=== PATIENT | male | born 1985 | race African-American/Black ===

== ENCOUNTER 2018-02-24 12:02 | Observation (INO) | payer SELFPAY ==
[2018-02-24] MEDS ORDERED: NS 1,000 ML IV ONE (13:00)
[2018-02-24] MEDS ORDERED: ONDANSETRON 4 MG/2 ML VIAL IVP ONE (13:00)
--- NOTE | 2018-02-24 13:15 | EDPHY ---
H & P Stated Complaint: Mid abd pain, vomiting x 1 day, constipation Time Seen by Provider: 02/24/18 12:47 HPI/ROS: CHIEF COMPLAINT: Abdominal pain HISTORY OF PRESENT ILLNESS: 32-year-old generally healthy male arrives via private vehicle with his complaining of epigastric and periumbilical pain which started last evening after eating some cheese. Positive nausea with no vomiting. Feels like he needs to pass gas and stool and is unable to do so Last oral intake 10:00 a.m. today consisting of cereal PRIMARY CARE PROVIDER: REVIEW OF SYSTEMS: 10 systems reviewed and negative with the exception of the elements mentioned in the history of present illness PAST MEDICAL & SURGICAL HISTORY: No history of abdominal surgeries SOCIAL HISTORY:Intermittent marijuana smoking PHYSICAL EXAM (Prior to examination, patient consented to physical exam, hands were washed and my usual and customary physical exam procedures followed) 1) GENERAL: Well-developed, well-nourished, alert and oriented. Appears uncomfortable, observed ambulating with antalgic gait, bent over guarding his abdomen. 2) HEAD: Normocephalic, atraumatic 3) HEENT: Pupils equal, round, reactive to light bilaterally. Sclera anicteric. Nasopharynx, oropharynx, clear, no lesions. Moist Mucous membranes. 4) NECK: Full range of motion, no meningeal signs. 5) LUNGS: Clear auscultation bilaterally, no wheezes, no rhonchi, no retractions. 6) HEART: Regular rate and rhythm, no murmur, no heave, no gallop. 7) ABDOMEN: guarding abdomen, tender to palpation epigastrium, no palpable or pulsatile mass, negative McBurney's, negative Chou's, negative Rovsing's, negative peritoneal sign, 8) MUSCULOSKELETAL: Moving all extremities, no focal areas of tenderness, no obvious trauma. No peripheral edema or discoloration. 9) BACK: No CVA tenderness, no midline vertebral tenderness, no fluctuance, no step-off, no obvious trauma, no visual or palpable abnormality. 10) SKIN: No rash, no petechiae. 11) Psychiatric: Patient is oriented X 3, there is no agitation. DIFFERENTIAL DIAGNOSIS: My differential diagnosis includes, but is not limited to, acute appendicitis, acute cholecystitis, bowel obstruction, acute pancreatitis, testicular torsion, gastritis and urinary tract infection. The patient understands that this diagnosis is provisional and can never be 100% accurate. This is a partial list of diagnoses considered. These considerations are based on history, physical exam, past history and reassessment. - Medical/Surgical History Hx Asthma: No Hx Chronic Respiratory Disease: No Hx Diabetes: No Hx Cardiac Disease: No Hx Renal Disease: No Hx Cirrhosis: No Hx Alcoholism: No Hx HIV/AIDS: No Hx Splenectomy or Spleen Trauma: No Other PMH: denies - Social History Smoking Status: Never smoked Constitutional: Initial Vital Signs Heart Rate 85 02/24/18 12:09 Respiratory Rate 16 02/24/18 12:09 Blood Pressure 128/85 H 02/24/18 12:09 O2 Sat (%) 97 02/24/18 12:09 O2 Delivery Mode Room Air Allergies/Adverse Reactions: No Known Allergies Allergy (Verified 02/24/18 15:13) Home Medications: Medication Instructions Recorded NK [No Known Home Meds] 02/24/18 Medical Decision Making - Diagnostics Imaging Results: Imaging Impressions Abdomen CT 02/24/18 13:01 Impression: 1. Small bowel distention suggesting ileus or obstruction, with no definite transition point identified. 2. Indeterminate cystic structure in the left lower lobe, likely benign, however follow up CT is recommended in 3-6 months. 3. Apparent thickening of the distal stomach, which could be related to inflammation or underdistention. 4. Additional findings as above. Findings discussed with Jolynn Lundberg 02/24/2018 at 14:39. Images reviewed myself ED Course/Re-evaluation: Discussed case with secondary supervising physician Dr. Zeus Copeland in the ER. Patient noted to have bowel obstruction on CT imaging. Patient was re- examined he remains complaining of discomfort. Will plan on admission. 2:50 p.m.: Consultation with Dr. Benitez Elias regarding the patient's bowel obstruction. Dr. Elias will admit patient - Data Points Laboratory Results: Laboratory Results 02/24/18 12:54 02/24/18 12:54 02/24/18 02/24/18 02/24/18 13:09 12:54 12:54 WBC 6.02 10^3/uL 10^3/uL (3.80-9.50) RBC 5.01 10^6/uL 10^6/uL (4.40-6.38) Hgb 15.0 g/dL g/dL (13.7-17.5) POC Hgb 15.6 gm/dL gm/dL (13.7-17.5) Hct 45.7 % % (40.0-51.0) POC Hct 46 % % (40-51) MCV 91.2 fL fL (81.5-99.8) MCH 29.9 pg pg (27.9-34.1) MCHC 32.8 g/dL g/dL (32.4-36.7) RDW 13.6 % % (11.5-15.2) Plt Count 256 10^3/uL 10^3/uL (150-400) MPV 10.9 fL fL (8.7-11.7) Neut % (Auto) 62.9 % % (39.3-74.2) Lymph % (Auto) 25.7 % % (15.0-45.0) Addison % (Auto) 10.8 % % (4.5-13.0) Eos % (Auto) 0.2 % L % (0.6-7.6) Baso % (Auto) 0.2 % L % (0.3-1.7) Nucleat RBC Rel Count 0.0 % % (0.0-0.2) Absolute Neuts (auto) 3.79 10^3/uL 10^3/uL (1.70-6.50) Absolute Lymphs (auto) 1.55 10^3/uL 10^3/uL (1.00-3.00) Absolute Monos (auto) 0.65 10^3/uL 10^3/uL (0.30-0.80) Absolute Eos (auto) 0.01 10^3/uL L 10^3/uL (0.03-0.40) Absolute Basos (auto) 0.01 10^3/uL L 10^3/uL (0.02-0.10) Absolute Nucleated RBC 0.00 10^3/uL 10^3/uL (0-0.01) Immature Gran % 0.2 % % (0.0-1.1) Immature Gran # 0.01 10^3/uL 10^3/uL (0.00-0.10) POC Sodium 140 mEq/L mEq/L (135-145) Sodium 140 mEq/L mEq/L (135-145) POC Potassium 3.5 mEq/L mEq/L (3.3-5.0) Potassium 3.9 mEq/L mEq/L (3.5-5.2) POC Chloride 98 mEq/L mEq/L (97-110) Chloride 100 mEq/L mEq/L (97-110) Carbon Dioxide 25 mEq/l mEq/l (22-31) Anion Gap 15 mEq/L H mEq/L (6-14) POC BUN 3 mg/dL L mg/dL (7-23) BUN 6 mg/dL L mg/dL (7-23) Creatinine 0.7 mg/dL mg/dL (0.7-1.3) POC Creatinine 0.6 mg/dL L mg/dL (0.7-1.3) Estimated GFR > 60 Glucose 103 mg/dL H mg/dL (70-100) POC Glucose 98 mg/dL mg/dL (70-100) Calcium 10.1 mg/dL mg/dL (8.5-10.4) Total Bilirubin 0.4 mg/dL mg/dL (0.1-1.4) Conjugated Bilirubin 0.2 mg/dL mg/dL (0.0-0.5) Unconjugated Bilirubin 0.2 mg/dL mg/dL (0.0-1.1) AST 43 IU/L IU/L (17-59) ALT 40 IU/L IU/L (21-72) Alkaline Phosphatase 130 IU/L H IU/L (38-126) Total Protein 10.9 g/dL H g/dL (6.3-8.2) Albumin 4.5 g/dL g/dL (3.5-5.0) Lipase 99 IU/L IU/L (23-300) Medications Given: Discontinued Medications Sodium Chloride (Ns) 1,000 mls @ 0 mls/hr IV EDNOW ONE; Wide Open PRN Reason: Protocol Stop: 02/24/18 13:01 Last Admin: 02/24/18 13:17 Dose: 1,000 mls Morphine Sulfate (Morphine) 4 mg IVP EDNOW ONE Stop: 12/12/18 13:01 Last Admin: 02/24/18 13:17 Dose: 2 mg Ondansetron HCl (Zofran) 4 mg IVP EDNOW ONE Stop: 02/24/18 13:01 Last Admin: 02/24/18 13:18 Dose: 4 mg Point of Care Test Results: Chemistry 02/24/18 13:09 POC Sodium 140 mEq/L mEq/L (135-145) POC Potassium 3.5 mEq/L mEq/L (3.3-5.0) POC Chloride 98 mEq/L mEq/L (97-110) POC BUN 3 mg/dL L mg/dL (7-23) POC Creatinine 0.6 mg/dL L mg/dL (0.7-1.3) POC Glucose 98 mg/dL mg/dL (70-100) ISTAT H&H 02/24/18 13:09 POC Hgb 15.6 gm/dL gm/dL (13.7-17.5) POC Hct 46 % % (40-51) Departure - Departure Disposition: [facility] Acute Clinical Impression: Small bowel obstruction Condition: Fair
[2018-02-24 13:19] LABS: PLATELET COUNT 256 10^3/uL (150-400)
[2018-02-24] MEDS ORDERED: IOPAMIDOL (ISOVUE-300) 100 ML BTL ONE (13:48)
--- NOTE | 2018-02-24 16:33 | GHP ---
DATE OF ADMISSION: 02/24/2018 CHIEF COMPLAINT: Abdominal pain. PRESENT ILLNESS: A 32-year-old male who complains of left upper quadrant abdominal pain since last n ight. He induced vomiting once this morning and has had no further emesis. He states he has not pas sed flatus or stools since last night. He has had some vague abdominal issues for several years, but has not seen any physician or the ER about these for 4 years. ALLERGIES: None. CURRENT MEDICATIONS: None. PREVIOUS SURGERY: None. REVIEW OF SYSTEMS: Denies asthma, heart trouble, diabetes, epilepsy, rheumatic fever. SOCIAL HISTORY: Nonsmoker. No alcohol use. He is , employed as a sculptor. PHYSICAL EXAM: GENERAL: Slender black male in minimal distress. HEENT: Pharynx clear. NECK: Suppl e without adenopathy. LUNGS: Clear. HEART: Normal S1, S2 without murmur. ABDOMEN: Soft, flat, be nign, no distention, no pain, no masses. Pelvis stable. LOWER EXTREMITIES: Intact. NEUROLOGICAL: In tact. No hernias are present. CT scan is reviewed showing obvious dilated loops of small bowel, but no transition zone. No ascites . No etiology as to the small bowel dilatation. ASSESSMENT/PLAN: Lack of flatus and stool for 12 hours. Small bowel dilatation. Differential diagn osis includes ileus or gastroenteritis versus mechanical small bowel obstruction. Given he has never had previous surgery, it is less common to have adhesion related small bowel obstruction, although c ertainly some patients form a band of adhesions which cause a small bowel compromise. As the patient is not in any great distress, we will admit him for IV hydration, observation. Should this not improve by tomorrow, exploratory laparotomy or laparoscopy would be appropriate to look for the source of his apparent bowel obstruction versus ileus. /[id number]/MODL
[2018-02-24] MEDS: LR 1,000 ML IV SCH (16:39)
[2018-02-25] MEDS: LR 1,000 ML IV SCH (02:46)
--- NOTE | 2018-02-25 09:59 | ASMTCMCOM ---
CM Note CM Note Notes: Pt is a 32 y/o man admitted for a sbo. Nany espinoza/ Harish met w/ pt. Nany will see if pt qualifies for Medicaid. Pt is currently listed as self pay. Pt will most likely not have any d/c needs. CM available for changes. Plan: Independent Date Signed: 02/25/2018 09:58 AM Electronically Signed By:SANIA Chavez
[2018-02-25 15:39] VITALS: BP 115/84
--- NOTE | 2018-02-25 15:43 | SOAPPROG ---
SOAP Progress Note Assessment/Plan: Assessment: Plan: Subjective: feels better, diet advanced, dc home Objective: Vital Signs Temp Pulse Resp BP Pulse Ox 36.9 C 59 L 12 115/84 H 96 02/25/18 15:38 02/25/18 15:38 02/25/18 15:38 02/25/18 15:38 02/25/18 15:38 02/24/18 02/25/18 02/26/18 05:59 05:59 05:59 Intake Total 1200 Balance 1200 ICD10 Worksheet Patient Problems: Problems Problem Status Onset Small bowel obstruction Acute
--- NOTE | 2018-02-25 16:19 | GDS ---
HISTORY OF PRESENT ILLNESS: Patient was admitted with possible small bowel obstruction, although his abdomen was soft and benign. HOSPITAL COURSE: He was treated with bowel rest overnight. In the morning, he was passing flatus, s tarted on a clear liquid diet, advanced at the time of discharge, passing flatus. No abdominal pain. No nausea. No vomiting. FINAL DIAGNOSIS: Abdominal pain. DISPOSITION: Home. Follow up with Dr. Cutr bal return of symptoms. /[id number]/MODL
== END 2018-02-25 16:04 | disposition home or self-care (01) ==
LOC: F3E 16:05
PROVIDERS: ADMIT Surgery; ATTEND Surgery
DX: R10.12 Left upper quadrant pain (principal); E86.9 Volume depletion, unspecified
CPT/HCPCS: 82435-PO; 82565-PO; 82947-PO; 84132-PO; 84295-PO; 84520-PO; 85014-PO; 96374; G0378; J2270; J2405; Q9967